=== PATIENT | female | born 1985 | race Caucasian/White ===

== ENCOUNTER 2022-04-03 22:07 | Emergency (ER) | payer MEDICAID, SELFPAY ==
[2022-04-03 22:07] VITALS: BP 158/81; PULSE 103; RESP 16; TEMP 36.9; O2SAT 97; BMI 25.6
[2022-04-03 22:09] VITALS: BP 158/81; PULSE 103; RESP 16; TEMP 36.9; O2SAT 97
--- NOTE | 2022-04-03 22:25 | ED.VIS.LOWEX ---
HPI History of Present Illness Chief Complaint: Wound Narrative Narrative: Patient who denies significant past medical history states that approximately 6 days ago she was injecting methamphetamine into her left thigh. She thinks she may have missed. Over the last 3 days, the area turned black, became reddened surrounding it, and swollen. She denies any fevers but states at times she is chilled. She is in injected superficially and was trying to hit a superficial vein but thinks she messed. She started an antibiotic that her friend gave her 3 days ago. [facility] Medical History Substance abuse Home Medications ibuprofen 800 mg tablet 800 mg PO Q8H PRN pain #20 tabs 04/03/22 [Rx Last Taken Unknown] sulfamethoxazole 800 mg-trimethoprim 160 mg tablet (Bactrim DS) 1 tab PO BID #20 tabs 04/03/22 [Rx Last Taken Unknown] Allergy/AdvReac Type Severity Reaction Status Date / Time No Known Allergies Allergy Verified 04/03/22 22:10 Social History Smoking Status: Current every day smoker tobacco type: cigarettes ROS ROS ED ROS Narrative Constitutional: No fever, positive chills. HEENT: No sore throat. No neck pain. No loss of vision. No rhinorrhea. Cardiovascular: No chest pain. No palpitations. No pedal edema. Respiratory: No cough, no shortness of breath. Abdominal: No abdominal pain. No nausea. No vomiting. Genitourinary: No dysuria. No hematuria. Musculoskeletal: No myalgias. No arthralgias. Neurologic: No headaches. No dizziness. No lightheadedness. Skin: No rash. Positive black area on left inner thigh distally with surrounding redness, swelling, and tender to touch. Psychiatric: No depression. No anxiety. EXAM Physical Exam Narrative Exam Narrative: Afebrile. Vital signs noted. Nontoxic-appearing. HEENT: Normocephalic. Atraumatic. PERRL, EOMI. Neck soft and supple. No point tenderness or step off. Cardiovascular: Regular rate and rhythm with intermittent tachycardia. No murmurs, rubs, or gallops appreciated. Respiratory: No tachypnea. Lungs clear to auscultation bilaterally. Gastrointestinal: Abdomen soft, nontender, with normoactive bowel sounds. No rebound or guarding. Neurological: Awake. Alert. Nonfocal, nonlateralizing. Skin: No rash. 1 and half centimeter area of eschar with surrounding erythema and mild swelling, positive induration. No fluctuance. Musculoskeletal: No pedal edema. Full range of motion extremities. Const Vital Signs: 04/03/22 22:07 04/03/22 22:09 Temperature 98.4 F 98.4 F Temperature Source Temporal Temporal Pulse Rate 103 H 103 H Respiratory Rate 16 16 Blood Pressure 158/81 H 158/81 H Blood Pressure Mean 106 106 Pulse Ox 97 97 Oxygen Delivery Method Room Air Room Air MDM MDM MDM Narrative Medical decision making narrative: I do feel that this is probably an underlying ulcer. She was consented for I&D. She was given ibuprofen and Bactrim. I will perform incision and drainage to see if there is any purulent material underlying. I do think that she has mild skin necrosis from injecting the methamphetamine beneath her skin. I&D was performed. See procedure note for details. She will be written prescription for Bactrim DS for 10 days and for ibuprofen 800 mg. She was told to remove the wick within 48 hours and not to keep it there longer. She was also told to follow-up with a primary care provider for wound check in 2 days. She was told that she may also return to the ED. At this point in time, I feel she be discharged safely home with follow-up. Return instructions to the emergency department were reviewed. Disposition is discharged home in stable condition. Procedures Other Procedures Procedure(s): Incision and drainage: Lidocaine 1% was used as a local anesthetic. Area was cleansed initially. #11 blade was used to make a cruciate incision in the area of eschar. There was a moderate amount of serosanguineous and purulent drainage. Area was deloculated and irrigated with normal saline. 1/4 inch iodoform packing was inserted with 2 tails exposed. Patient tolerated procedure well. Discharge Plan Triage Chief Complaint: Wound ED Provider: Mahesh Bueno Dx/Rx/DC Orders Clinical Impression: Abscess of left thigh, Skin ulcer of left thigh Instructions: ED Abscess Incision And Drainage Prescriptions: New sulfamethoxazole-trimethoprim [Bactrim DS] 800-160 mg tablet 1 tab PO BID Qty: 20 0RF ibuprofen 800 mg tablet 800 mg PO Q8H PRN (Reason: pain) Qty: 20 0RF Primary Care Provider: Care Physician,No Primary Referrals: Luisa Blanchard MD [Med Staff - Medical Doctor Nuclear Medicine] - 2 Days for wound check Lorena Trejo [Non-Staff] - 2 Days for wound check Care Physician,No Primary [Primary Care Provider] - Activity Restrictions/Additional Instructions: Remove the wick from your left thigh in 48 hours. If it is dried, you may wet it with warm water and remove it. Do not leave in for longer than 48 hours. Have your wound checked by her primary care provider in 2 days, or you may return to the emergency department. Take all the antibiotics as directed. Disposition Disposition: Home, Self Care
[2022-04-03] MEDS: Smz/Tmp Ds Tablet 1 TABLET PO (22:47)
[2022-04-03] MEDS: Ibuprofen 600 MG Tablet PO (22:48)
[2022-04-03] MEDS: Lidocaine 1% (20 ml mdv) 20 ML Vial INFILT (22:48)
[2022-04-03 23:16] VITALS: PULSE 95; RESP 16; O2SAT 96
== END 2022-04-03 23:16 | disposition home or self-care (01) ==
PROVIDERS: Emergency Provider Emergency Medicine; Visit Provider Emergency Medicine
DX: L02.416 Cutaneous abscess of left lower limb (principal); L97.121 Non-pressure chronic ulcer of left thigh limited to breakdown of skin; F15.10 Other stimulant abuse, uncomplicated; F17.210 Nicotine dependence, cigarettes, uncomplicated
CPT/HCPCS: 10061; 10060; 99283